=== PATIENT | male | born 1945 | race Caucasian/White ===

== ENCOUNTER 2024-04-12 08:11 | Outpatient (CLI) | payer MEDICARE, MEDICAID ==
[~2024-04-12 08:11] MED LIST: CYAN100097; GEMF600T89 PO; GLIP5TAB23; LOSA50TA64 PO; METF-436 PO; MV-M1TAB38; ONDA4TAB6 PO; SIMV-45 PO; TAMS0.4C32 PO; TRAM50TA2 PO; iohexol 350MG/ML 100ml bottle IV ONE
[2024-04-12 09:21] LABS: ALANINE AMINOTRANSFERASE 12 U/L (12-78); ALBUMIN 3.8 G/DL (3.4-5.0); ALBUMIN/GLOBULIN RATIO 1.1 (1.1-1.5); ALKALINE PHOSPHATASE 49 IU/L (46-116); ANION GAP 6 (8-16); ASPARTATE AMINO TRANSFERASE 19 U/L (10-37); BILIRUBIN,TOTAL 0.6 MG/DL (0.1-1.0); BLOOD UREA NITROGEN 15 MG/DL (7-18); BUN/CREATININE RATIO 11.8 (10.0-20.0); CHLORIDE 104 MMOL/L (99-107); CREATININE 1.27 MG/DL (0.60-1.10); GLUCOSE 94 MG/DL (70-104); POTASSIUM 4.3 MMOL/L (3.5-5.1); SODIUM 136 MMOL/L (135-145); TOTAL PROTEIN 7.2 G/DL (6.4-8.2); eGFR 55 ML/MIN
== END 2024-04-12 23:59 | disposition home or self-care (01) ==
LOC: RAD 08:11
PROVIDERS: ATTEND Nurse Practitioner
DX: I63.81 Other cerebral infarction due to occlusion or stenosis of small artery (principal); R29.6 Repeated falls; M47.9 Spondylosis, unspecified
CPT/HCPCS: 36415; 70498; 70544; 70551; 80053; J3490; Q9967